=== PATIENT | male | born 1955 | race African-American/Black ===

== ENCOUNTER 2021-06-30 12:51 | Inpatient (IN) | payer MEDICARE, OTHER ==
[2021-06-30] MEDS ORDERED: methaDONE HCL 10 MG TABLET (FOR DETOX USE ONLY) PO ONE (13:28)
[2021-06-30] MEDS ORDERED: MAGNESIUM CITRATE 300 ML BOTTLE PO PRN (13:28)
[2021-06-30] MEDS ORDERED: MAG HYDROX/AL HYDROX/SIMETH 30 ML UNIT-DOSE CUP PO PRN (13:28)
[2021-06-30] MEDS ORDERED: ONDANSETRON *ODT* 4 MG TABLET SL PRN (13:28)
[2021-06-30] MEDS ORDERED: BENZOCAINE/MENTHOL (CHLORASEPTIC ) LOZENGE MM PRN (13:28)
[2021-06-30] MEDS ORDERED: LOPERAMIDE HCL 2 MG CAPSULE PO PRN (13:28)
[2021-06-30] MEDS ORDERED: DICYCLOMINE HCL 10 MG CAPSULE PO PRN (13:28)
[2021-06-30] MEDS ORDERED: BISMUTH SUBSALICYLATE 262 MG/15 ML BTL PO PRN (13:28)
[2021-06-30] MEDS ORDERED: ACETAMINOPHEN 325 MG TABLET (FP) PO PRN ×2 (13:28)
[2021-06-30] MEDS ORDERED: MAGNESIUM HYDROX 2400MG/30ML ORAL SUSPENSION 30 ML CUP PO PRN (13:28)
[2021-06-30] MEDS ORDERED: NICOTINE 10 MG CARTRIDGE (INHALER) IH PRN (13:28)
[2021-06-30 13:36] VITALS: BMI 20.7
[2021-06-30] MEDS: cloNIDine HCL 0.1 MG TABLET PO PRN ×2 (17:30→22:55)
[2021-06-30] MEDS: hydrOXYzine PAMOATE 25 MG CAPSULE (FP) PO SCH ×3 (17:30→22:55)
[2021-06-30] MEDS: NICOTINE 21 MG/24 HOURS TOPICAL PATCH TD SCH (17:35)
[2021-06-30] MEDS: ENALAPRIL MALEATE 10 MG TABLET PO SCH (19:26)
[2021-06-30] MEDS: PRENATAL VITAMINS W/ FOLIC ACID TABLET (FP) PO SCH (19:26)
[2021-06-30] MEDS: MELATONIN 5 MG TABLETS PO SCH (22:55)
[2021-06-30] MEDS: THIAMINE HCL 100 MG TABLET (FP) PO SCH (22:55)
[2021-07-01] MEDS: hydrOXYzine PAMOATE 25 MG CAPSULE (FP) PO SCH ×5 (06:56→22:57)
[2021-07-01] MEDS ORDERED: methaDONE HCL 10 MG TABLET (FOR DETOX USE ONLY) ONE (09:58)
[2021-07-01] MEDS: ENALAPRIL MALEATE 10 MG TABLET PO SCH (10:55)
[2021-07-01] MEDS: METHOCARBAMOL 500 MG TABLET PO PRN (10:55)
[2021-07-01] MEDS: PRENATAL VITAMINS W/ FOLIC ACID TABLET (FP) PO SCH (10:56)
[2021-07-01] MEDS: cloNIDine HCL 0.1 MG TABLET PO PRN ×2 (10:57→18:26)
[2021-07-01] MEDS: NICOTINE 21 MG/24 HOURS TOPICAL PATCH TD SCH (10:57)
[2021-07-01] MEDS: THIAMINE HCL 100 MG TABLET (FP) PO SCH (22:57)
[2021-07-01] MEDS: MELATONIN 5 MG TABLETS PO SCH (22:57)
[2021-07-02] MEDS: hydrOXYzine PAMOATE 25 MG CAPSULE (FP) PO SCH ×5 (07:22→22:58)
[2021-07-02] MEDS: cloNIDine HCL 0.1 MG TABLET PO PRN ×3 (07:51→23:15)
[2021-07-02] MEDS ORDERED: methaDONE HCL 10 MG TABLET (FOR DETOX USE ONLY) PO ONE (10:00)
[2021-07-02] MEDS: METHOCARBAMOL 500 MG TABLET PO PRN (10:34)
[2021-07-02] MEDS: ENALAPRIL MALEATE 10 MG TABLET PO SCH (10:35)
[2021-07-02] MEDS: NICOTINE 21 MG/24 HOURS TOPICAL PATCH TD SCH (10:35)
[2021-07-02] MEDS: PRENATAL VITAMINS W/ FOLIC ACID TABLET (FP) PO SCH (10:35)
[2021-07-02 14:12] LABS: SARS-CoV-2 NAA Not Detected (Not Detected)
[2021-07-02] MEDS: THIAMINE HCL 100 MG TABLET (FP) PO SCH (22:58)
[2021-07-02] MEDS: MELATONIN 5 MG TABLETS PO SCH (22:58)
[2021-07-03] MEDS ORDERED: cloNIDine HCL 0.1 MG TABLET PO ONE ×2 (02:41→15:57)
[2021-07-03] MEDS: hydrOXYzine PAMOATE 25 MG CAPSULE (FP) PO SCH ×5 (06:45→23:37)
[2021-07-03] MEDS ORDERED: methaDONE HCL 10 MG TABLET (FOR DETOX USE ONLY) ONE (09:53)
[2021-07-03] MEDS: ENALAPRIL MALEATE 10 MG TABLET PO SCH (10:02)
[2021-07-03] MEDS: NICOTINE 21 MG/24 HOURS TOPICAL PATCH TD SCH (10:02)
[2021-07-03] MEDS: METHOCARBAMOL 500 MG TABLET PO PRN (10:03)
[2021-07-03] MEDS: PRENATAL VITAMINS W/ FOLIC ACID TABLET (FP) PO SCH (10:06)
[2021-07-03] MEDS: THIAMINE HCL 100 MG TABLET (FP) PO SCH (23:37)
[2021-07-03] MEDS: MELATONIN 5 MG TABLETS PO SCH (23:37)
[2021-07-04] MEDS: hydrOXYzine PAMOATE 25 MG CAPSULE (FP) PO SCH ×5 (07:24→23:02)
[2021-07-04] MEDS ORDERED: methaDONE HCL 10 MG TABLET (FOR DETOX USE ONLY) PO ONE (10:00)
[2021-07-04] MEDS: METHOCARBAMOL 500 MG TABLET PO PRN (11:15)
[2021-07-04] MEDS: ENALAPRIL MALEATE 10 MG TABLET PO SCH (11:15)
[2021-07-04] MEDS: IBUPROFEN 400 MG TABLET (FP) PO PRN (11:22)
[2021-07-04] MEDS: PRENATAL VITAMINS W/ FOLIC ACID TABLET (FP) PO SCH (11:22)
[2021-07-04] MEDS: NICOTINE 21 MG/24 HOURS TOPICAL PATCH TD SCH (11:23)
[2021-07-04] MEDS: THIAMINE HCL 100 MG TABLET (FP) PO SCH (23:02)
[2021-07-04] MEDS: MELATONIN 5 MG TABLETS PO SCH (23:02)
[2021-07-05] MEDS: hydrOXYzine PAMOATE 25 MG CAPSULE (FP) PO SCH ×5 (06:36→21:33)
[2021-07-05] MEDS: ENALAPRIL MALEATE 10 MG TABLET PO SCH (10:44)
[2021-07-05] MEDS: PRENATAL VITAMINS W/ FOLIC ACID TABLET (FP) PO SCH (10:44)
[2021-07-05] MEDS: NICOTINE 21 MG/24 HOURS TOPICAL PATCH TD SCH (10:44)
[2021-07-05] MEDS: METHOCARBAMOL 500 MG TABLET PO PRN (10:50)
[2021-07-05] MEDS: IBUPROFEN 400 MG TABLET (FP) PO PRN (10:50)
[2021-07-05] MEDS: MELATONIN 5 MG TABLETS PO SCH (21:33)
[2021-07-05] MEDS: THIAMINE HCL 100 MG TABLET (FP) PO SCH (21:33)
[2021-07-06] MEDS: hydrOXYzine PAMOATE 25 MG CAPSULE (FP) PO SCH ×2 (08:38→09:46)
[2021-07-06 09:28] VITALS: TEMP 97.7
[2021-07-06] MEDS: ENALAPRIL MALEATE 10 MG TABLET PO SCH (09:46)
[2021-07-06] MEDS: NICOTINE 21 MG/24 HOURS TOPICAL PATCH TD SCH (09:46)
[2021-07-06] MEDS: PRENATAL VITAMINS W/ FOLIC ACID TABLET (FP) PO SCH (09:46)
[2021-07-06] MEDS ORDERED: cloNIDine HCL 0.1 MG TABLET PO ONE (11:37)
[2021-07-06] MEDS ORDERED: TRIMETHOBENZAMIDE HCL 200MG/2ML INJ IM ONE (18:08)
[2021-07-06 21:00] VITALS: BP 225/76; PULSE 54
[2021-07-06] MEDS: MELATONIN 5 MG TABLETS PO SCH (23:11)
[2021-07-06] MEDS: THIAMINE HCL 100 MG TABLET (FP) PO SCH (23:11)
[2021-07-08 13:46] LABS: HIV INTERPRETATION NEGATIVE (NEGATIVE)
== END 2021-07-07 06:00 | disposition short-term general hospital (02) | DRG 895 ==
LOC: YASAS 12:51 → Y3N 15:56 → UNDODISIN 07-05 15:15 → Y3E 07-05 15:33
PROVIDERS: ADMIT Allergy & Immunology; ATTEND Allergy & Immunology
PROC: HZ42ZZZ Group Counseling for Substance Abuse Treatment, Cognitive-Behavioral (ICD-10-PCS; principal; 2021-06-30)
DX: F11.20 Opioid dependence, uncomplicated (principal); I69.851 Hemiplegia and hemiparesis following other cerebrovascular disease affecting right dominant side; F17.210 Nicotine dependence, cigarettes, uncomplicated; I10 Essential (primary) hypertension; E11.9 Type 2 diabetes mellitus without complications; Z56.0 Unemployment, unspecified; Z59.00 Homelessness unspecified
CPT/HCPCS: 36415; 71046-TC-FY; 82962; 87389; C9803-CS; J0735; Q0162; U0003; U0005

== ENCOUNTER 2021-07-06 23:08 | Inpatient (IN) | payer MEDICARE, OTHER ==
[2021-07-06] MEDS ORDERED: cloNIDine HCL 0.1 MG TABLET PO ONE (23:23)
[2021-07-06] MEDS ORDERED: cloNIDine HCL 0.1 MG TABLET ONE (23:27)
[2021-07-06] MEDS ORDERED: METOCLOPRAMIDE HCL INJECTION 10 MG/2 ML VIAL IVPUSH ONE (23:44)
[2021-07-06] MEDS ORDERED: LABETALOL HCL 5 MG/1 ML (100MG/20 ML VIAL) IVPUSH ONE (23:46)
[2021-07-07] MEDS ORDERED: LABETALOL HCL 5 MG/1 ML (200MG/40ML VIAL) IVPB ONE ×2 (00:03→02:17)
[2021-07-07] MEDS ORDERED: METOCLOPRAMIDE HCL INJECTION 10 MG/2 ML VIAL ONE (00:07)
[2021-07-07 00:09] LABS: HEMATOCRIT 44.2 % (35.4-49); HEMOGLOBIN 14.5 GM/dL (11.7-16.9); MCHC 32.8 g/dl (32.0-35.9); MEAN CELL VOLUME 82.1 fl (80-96); MEAN PLT VOLUME 8.4 fl (7.5-11.1); PLATELET COUNT 230 10^3/uL (134-434); RBC 5.38 M/mm3 (4.00-5.60); WHITE BLOOD COUNT 11.6 K/mm3 (4.0-10.0)
[2021-07-07 00:42] LABS: CALCIUM 9.6 mg/dL (8.5-10.1)
[2021-07-07 00:43] LABS: ALBUMIN 3.8 g/dl (3.4-5.0)
[2021-07-07 00:46] LABS: CREATININE 1.2 mg/dL (0.55-1.3)
[2021-07-07 00:48] LABS: LACTIC ACID 2.1 mmol/L (0.4-2.0); TOT PROT 8.5 g/dl (6.4-8.2)
[2021-07-07] MEDS ORDERED: LABETALOL HCL 5 MG/1 ML (100MG/20 ML VIAL) IVPUSH ONE ×4 (01:15→18:38)
[2021-07-07] MEDS ORDERED: ASPIRIN 325 MG TABLET PO ONE (02:34)
[2021-07-07 03:21] LABS: COCAINE, UR NEGATIVE (NEGATIVE); URINE AMPHETAMINES NEGATIVE (NEGATIVE); URINE BARBITURATES NEGATIVE (NEGATIVE)
[2021-07-07 03:22] LABS: PHENCYCLIDINE,URINE NEGATIVE (NEGATIVE); URINE BENZODIAZEPINES NEGATIVE (NEGATIVE)
[2021-07-07 03:24] LABS: EPI CELLS 17 /uL (0-25.1); HYALINE CASTS 2 /uL (0-3.1); PH,URINE 6.5 (5.0-8.0); URINE APPEARANCE CLEAR; URINE BACTERIA 3 /uL (0-1359); URINE BILIRUBIN NEGATIVE (NEGATIVE); URINE COLOR YELLOW; URINE GLUCOSE (UA) NEGATIVE (NEGATIVE); URINE KETONE 2+ (NEGATIVE); URINE LEUK ESTERASE NEGATIVE (NEGATIVE); URINE NITRITE NEGATIVE (NEGATIVE); URINE PROTEIN 4+ (NEGATIVE); URINE RBC 369 /uL (0-23.9); URINE UROBILINOGEN 0.2 mg/dL (0.2-1.0); URINE WBC 17 /uL (0-25.8)
[2021-07-07] MEDS ORDERED: NICARDIPINE 25 MG in DEXTROSE 5%-WATER - 240 ML IVPB SCH (03:45)
[2021-07-07 04:02] LABS: METHADONE, UR POSITIVE (NEGATIVE); OPIATES, URI NEGATIVE (NEGATIVE)
[2021-07-07] MEDS ORDERED: methaDONE HCL 10 MG TABLET (FOR DETOX USE ONLY) PO ONE ×2 (04:30→05:05)
[2021-07-07] MEDS ORDERED: cloNIDine HCL 0.1 MG TABLET PO PRN (04:30)
[2021-07-07] MEDS ORDERED: PROCHLORPERAZINE INJECTION 10 MG/2 ML VIAL IM PRN (04:40)
[2021-07-07] MEDS ORDERED: methaDONE HCL 10 MG TABLET ONE (04:56)
[2021-07-07] MEDS ORDERED: methaDONE HCL 10 MG TABLET PO ONE (05:05)
[2021-07-07 05:07] LABS: ANISOCYTOSIS 2+; MACROCYTOSIS 0; ROULEAU 1+; TARGET CELLS 1+
[2021-07-07 06:00] VITALS: BMI 19.0
[2021-07-07] MEDS: INSULIN SLIDING SCALE (NOVOLOG) 1 VIAL SQ SCH ×4 (06:32→21:37)
[2021-07-07 07:56] LABS: CALCIUM 9.1 mg/dL (8.5-10.1)
[2021-07-07 07:57] LABS: BLOOD UREA NITROGEN 21.8 mg/dL (7-18); MAGNESIUM 2.3 mg/dL (1.8-2.4)
[2021-07-07 08:00] LABS: CREATININE 1.2 mg/dL (0.55-1.3); PHOSPHOROUS 2.6 mg/dL (2.5-4.9)
[2021-07-07] MEDS ORDERED: LACTATED RINGERS SOLUTION 1000 ML INFUS.BAG IV ONE (09:15)
[2021-07-07] MEDS: MUPIROCIN 2% TOPICAL OINTMENT FOR DECOLONIZATION NS SCH ×2 (09:19→21:34)
[2021-07-07] MEDS ORDERED: ASPIRIN 325 MG TABLET PO SCH (10:00)
[2021-07-07] MEDS ORDERED: amLODIPine BESYLATE 5 MG TABLET (FP) PO SCH (13:30)
[2021-07-07] MEDS: amLODIPine BESYLATE 10 MG TABLET (FP) PO SCH (14:51)
[2021-07-07] MEDS: ENALAPRIL MALEATE 10 MG TABLET PO SCH (16:13)
[2021-07-07] MEDS ORDERED: HYDROCHLOROTHIAZIDE 25 MG TABLET (FP) PO ONE (17:09)
[2021-07-07] MEDS ORDERED: ATORVASTATIN CA 40 MG TABLET (FP) PO SCH (22:00)
[2021-07-07] MEDS ORDERED: MELATONIN 5 MG TABLETS PO SCH (22:00)
[2021-07-07] MEDS ORDERED: CHLORHEXIDINE GLUCONATE 4% CLEANSER FOR DECOLONIZATION TP SCH (22:00)
[2021-07-07] MEDS ORDERED: ENALAPRIL MALEATE 10 MG TABLET PO ONE (23:19)
[2021-07-08] MEDS ORDERED: LABETALOL HCL 5 MG/1 ML (100MG/20 ML VIAL) IVPUSH ONE ×3 (00:52→11:23)
[2021-07-08] MEDS ORDERED: HYDROCHLOROTHIAZIDE 25 MG TABLET (FP) PO ONE (04:01)
[2021-07-08] MEDS: INSULIN SLIDING SCALE (NOVOLOG) 1 VIAL SQ SCH ×4 (06:36→21:33)
[2021-07-08] MEDS: MUPIROCIN 2% TOPICAL OINTMENT FOR DECOLONIZATION NS SCH ×2 (09:02→21:35)
[2021-07-08] MEDS: amLODIPine BESYLATE 10 MG TABLET (FP) PO SCH (09:02)
[2021-07-08] MEDS: ENALAPRIL MALEATE 10 MG TABLET PO SCH (09:02)
[2021-07-08] MEDS ORDERED: ENALAPRIL MALEATE 10 MG TABLET PO SCH (12:11)
[2021-07-08] MEDS ORDERED: ENALAPRIL MALEATE 10 MG TABLET PO ONE (12:11)
[2021-07-08] MEDS: CARVEDILOL 6.25 MG TABLET (FP) PO SCH ×2 (17:00→21:29)
[2021-07-08] MEDS ORDERED: cloNIDine HCL 0.1 MG TABLET PO PRN (17:25)
[2021-07-08] MEDS ORDERED: PROCHLORPERAZINE INJECTION 10 MG/2 ML VIAL IM PRN (17:25)
[2021-07-08 18:39] LABS: BASO % 0.8 % (0-2.0); EOS % 0.1 % (0-4.5); HEMATOCRIT 48.6 % (35.4-49); HEMOGLOBIN 15.5 GM/dL (11.7-16.9); LYMPH % 12.6 % (8-40); MCH 26.6 pg (25.7-33.7); MCHC 31.8 g/dl (32.0-35.9); MEAN CELL VOLUME 83.5 fl (80-96); MEAN PLT VOLUME 8.8 fl (7.5-11.1); NEUT % 78.5 % (42.8-82.8); RBC 5.82 M/mm3 (4.00-5.60)
[2021-07-08 18:47] LABS: CALCIUM 9.3 mg/dL (8.5-10.1)
[2021-07-08 18:48] LABS: ALBUMIN 3.9 g/dl (3.4-5.0); BLOOD UREA NITROGEN 29.8 mg/dL (7-18); MAGNESIUM 2.9 mg/dL (1.8-2.4)
[2021-07-08 18:51] LABS: CREATININE 1.2 mg/dL (0.55-1.3)
[2021-07-08 18:52] LABS: BILIRUBIN,TOTAL 1.4 mg/dL (0.2-1); TOT PROT 8.4 g/dl (6.4-8.2)
[2021-07-08 18:54] LABS: PLATELET COUNT 221 10^3/uL (134-434); PLATELET ESTIMATE ADEQUATE
[2021-07-08] MEDS ORDERED: LABETALOL HCL 5 MG/1 ML (100MG/20 ML VIAL) IVPUSH PRN (19:03)
[2021-07-08] MEDS: NICOTINE 21 MG/24 HOURS TOPICAL PATCH TD SCH (20:29)
[2021-07-08] MEDS ORDERED: ATORVASTATIN CA 40 MG TABLET (FP) PO SCH (22:00)
[2021-07-08] MEDS ORDERED: CHLORHEXIDINE GLUCONATE 4% CLEANSER FOR DECOLONIZATION TP SCH (22:00)
[2021-07-08] MEDS ORDERED: MELATONIN 5 MG TABLETS PO SCH (22:00)
[2021-07-09] MEDS: INSULIN SLIDING SCALE (NOVOLOG) 1 VIAL SQ SCH ×2 (06:40→12:14)
[2021-07-09 07:57] LABS: BASO % 0.5 % (0-2.0); EOS % 0.5 % (0-4.5); HEMATOCRIT 44.4 % (35.4-49); HEMOGLOBIN 14.7 GM/dL (11.7-16.9); LYMPH % 20.7 % (8-40); MCH 27.5 pg (25.7-33.7); MCHC 33.1 g/dl (32.0-35.9); MEAN CELL VOLUME 83.2 fl (80-96); MEAN PLT VOLUME 9.4 fl (7.5-11.1); MONO % 10.3 % (3.8-10.2); PLATELET COUNT 269 10^3/uL (134-434); RBC 5.33 M/mm3 (4.00-5.60); RDW 15.7 % (11.9-15.9); WHITE BLOOD COUNT 8.2 K/mm3 (4.0-10.0)
[2021-07-09 08:32] LABS: ALBUMIN 3.7 g/dl (3.4-5.0); CALCIUM 8.8 mg/dL (8.5-10.1)
[2021-07-09 08:33] LABS: BLOOD UREA NITROGEN 35.8 mg/dL (7-18)
[2021-07-09 08:34] LABS: MAGNESIUM 2.8 mg/dL (1.8-2.4)
[2021-07-09 08:35] LABS: PHOSPHOROUS 3.5 mg/dL (2.5-4.9)
[2021-07-09 08:36] LABS: CREATININE 1.2 mg/dL (0.55-1.3); TOT PROT 7.6 g/dl (6.4-8.2)
[2021-07-09 08:37] LABS: BILIRUBIN,TOTAL 1.3 mg/dL (0.2-1)
[2021-07-09] MEDS ORDERED: methaDONE HCL 10 MG TABLET (FOR DETOX USE ONLY) PO ONE (10:00)
[2021-07-09] MEDS ORDERED: ENALAPRIL MALEATE 10 MG TABLET PO SCH (10:00)
[2021-07-09] MEDS ORDERED: amLODIPine BESYLATE 10 MG TABLET (FP) PO SCH (10:00)
[2021-07-09] MEDS ORDERED: HYDROCHLOROTHIAZIDE 25 MG TABLET (FP) PO SCH ×2 (10:00)
[2021-07-09] MEDS: CARVEDILOL 6.25 MG TABLET (FP) PO SCH (10:01)
[2021-07-09] MEDS: NICOTINE 21 MG/24 HOURS TOPICAL PATCH TD SCH (10:01)
[2021-07-09] MEDS: MUPIROCIN 2% TOPICAL OINTMENT FOR DECOLONIZATION NS SCH (10:04)
[2021-07-09 14:47] VITALS: BP 150/77; PULSE 76; TEMP 98.6
[2021-07-10 11:08] LABS: ANTIGLOMERULAR BASEMENT MEN.AB 3 units (0-20)
[2021-07-11] MEDS ORDERED: methaDONE HCL 10 MG TABLET (FOR DETOX USE ONLY) PO ONE (10:00)
[2021-07-12 00:10] LABS: ATYPICAL pANCA <1:20 titer (Neg:<1:20); C-ANCA <1:20 titer (Neg:<1:20)
== END 2021-07-09 16:09 | disposition home or self-care (01) | DRG 305 ==
LOC: JER 23:08 → JERBED 07-07 03:54 → JICU 07-07 05:55 → J4W 07-08 17:58
PROVIDERS: ADMIT Internal Medicine Pulmonary Disease; ATTEND Internal Medicine
DX: I16.1 Hypertensive emergency (principal); F11.23 Opioid dependence with withdrawal; G81.91 Hemiplegia, unspecified affecting right dominant side; E11.43 Type 2 diabetes mellitus with diabetic autonomic (poly)neuropathy; F17.210 Nicotine dependence, cigarettes, uncomplicated; R50.9 Fever, unspecified; R11.2 Nausea with vomiting, unspecified; Z59.00 Homelessness unspecified; R10.9 Unspecified abdominal pain; F19.10 Other psychoactive substance abuse, uncomplicated
CPT/HCPCS: 36415; 70450-TC; 71275-TC; 74174-TC; 76775-TC; 80048; 80053; 80307; 81003; 82570; 82962; 83036; 83516; 83520; 83605; 83690; 83735; 84100; 84155; 84156; 84165; 84484; 85025; 86038; 86225; 86256; 86803; 86850; 86900; 86901; 87340; 93005; 93010; 97116-GP; 97161-GP; 99291; J0735